=== PATIENT | male | born 1945 | race Caucasian/White ===

== ENCOUNTER 2019-05-01 12:56 | Outpatient (CLI) | payer MEDICARE, SELFPAY ==
--- NOTE | 2019-05-01 13:02 | ECG_ITS ---
Measurements Intervals [place] Rate: 48 P: 48 W[place]: 151 QRS: -2 QRSD: 106 T: 46 QT: 457 QTc: 411 Interpretive Statements SINUS BRADYCARDIA DELAYED PRECORDIAL R/S TRANSITION BORDERLINE T WAVE ABNORMALITY- ANT/INF LEADS BASELINE ARTIFACT- I, II, III, AVR, AVL, AVF ABNORMAL ECG Electronically Signed On 05-01-2019 14:19:33 [employer] by Michael Moore D.O.
[2019-05-01 13:57] LABS: INR 1.9; Potassium 4.1 mmol/L (3.4-5.0); Prothrombin Time 21.1 Seconds (11.1-14.7)
[2019-05-01 13:58] LABS: Partial Thromboplastin Time 38.9 SECONDS (22.3-36.8)
[2019-05-01 14:04] LABS: Blood Urea Nitrogen 25 mg/dL (9-20); Calcium 9.5 mg/dL (8.4-10.2); Carbon Dioxide 30 mmol/L (22-30); Chloride 100 mmol/L (98-107); Estimated Glomerular Filt Rate 54; Glucose 103 mg/dL (75-110); Sodium 141 mmol/L (137-145)
== END 2019-05-01 12:57 | disposition home or self-care (01) ==
LOC: ANHSURGERY 13:02
PROVIDERS: Anesthesiology; PCP Internal Medicine; Visit Provider Urology
DX: Z79.01 Long term (current) use of anticoagulants (principal); Z79.899 Other long term (current) drug therapy; I10 Essential (primary) hypertension
CPT/HCPCS: 36415; 80048; 85610; 85730; 93005

== ENCOUNTER 2019-05-10 00:59 | Day surgery (SDC) | payer MEDICARE, SELFPAY ==
[2019-04-19 12:20] VITALS: BMI 30.4
--- NOTE | 2019-05-07 16:51 | P.HP_ITS ---
History of Present Illness History of Present Illness Consent: Risks, benefits, and alternatives have been discussed and questions answered. Patient agrees to proceed with procedure. Chief complaint: Prostate Cancer Narrative: Robert Daniel is a 73 year old male diagnosed with prostate cancer in 05/2015 when PSA was 6.38. After discussion of treatment options pt. has opted for placement of SpaceOAR to minimize risk of rectal irritation/injury during radiation. Review of Systems Cardiovascular: Cardiovascular: Denies chest pain, Denies lightheadedness, Denies palpitations and Denies dyspnea Respiratory: Respiratory: Denies dyspnea Gastrointestinal: Gastrointestinal: Denies diarrhea, Denies nausea and Denies vomiting Genitourinary: Genitourinary: Denies hematuria and Denies dysuria Endocrine: Endocrine: Denies palpitations PMFSH Social History Social History Gender identity (if verbalized by the patient): Male Meds Home Medications and Allergies Home Medications Medication Instructions Recorded Confirmed Type allopurinol 300 mg PO HS 04/19/19 04/19/19 History amlodipine 10 mg PO DAILY 04/19/19 04/19/19 History atenolol 25 mg PO DAILY 04/19/19 04/19/19 History atorvastatin 20 mg PO HS 04/19/19 04/19/19 History folic acid 1 mg PO DAILY 04/19/19 04/19/19 History hydrochlorothiazide 25 mg PO DAILY 04/19/19 04/19/19 History losartan 100 mg PO DAILY 04/19/19 04/19/19 History omega 3-wiw-vum-fish oil [Fish Oil] 3 cap PO DAILY 04/19/19 04/19/19 History warfarin See Rx Instructions .ROUTE .COMPLEX 04/19/19 04/19/19 History Allergies Allergy/AdvReac Type Severity Reaction Status Date / Time No Known Allergies Allergy Verified 04/19/19 12:20 Exam Const: General: no acute distress Resp: Effort & Inspection: normal respiratory effort GI: Inspection: non-distended GI Palp: No abdominal tenderness and No Guarding due to palpation present (GI) Auscultation: normal bowel sounds Assessment and Plan Assessment and plan (1) Prostate cancer: Code(s): C61 - Malignant neoplasm of prostate Status: Acute Assessment and Plan: * Transrectal ultrasound and placement of SpaceOAR. * Risc of rectal injury discussed with pt.
--- NOTE | 2019-05-10 06:44 | WPDHPUPDATE1 ---
History and Physical Update Update Date/Time: 05/10/19 06:44 History and Physical has been reviewed, including an updated exam of the patient. There are NO changes in the patient's condition. Risks, benefits, and alternatives have been discussed and questions answered. Patient agrees to proceed with procedure.
[2019-05-10 09:00] VITALS: BP 153/63; PULSE 51; RESP 18; TEMP 37.3; O2SAT 99
[2019-05-10] MEDS: LACTATED RINGERS 1,000 ML 30 ML IV CONT (09:00)
--- NOTE | 2019-05-10 09:01 | WPDANESEPPF ---
Anes - Initial Pre Proc Eval Procedure: Operation Date: 05/10/19 10:30 Proposed Procedures p Insertion SpaceOAR Hydrogel System - Man Camacho MD Date/Time: 05/10/19 09:01 Surgeon: Man Camacho MD Pre Op Diagnosis: Prostate Cancer Patient Data Age: 73 Gender: M Height: 6 ft Weight: 101.6 kg Allergies Allergy/AdvReac Type Severity Reaction Status Date / Time No Known Allergies Allergy Verified 04/19/19 12:20 Home Medications Medication Instructions Recorded Confirmed Type allopurinol 300 mg PO HS 04/19/19 04/19/19 History amlodipine 10 mg PO DAILY 04/19/19 04/19/19 History atenolol 25 mg PO DAILY 04/19/19 04/19/19 History atorvastatin 20 mg PO HS 04/19/19 04/19/19 History folic acid 1 mg PO DAILY 04/19/19 04/19/19 History hydrochlorothiazide 25 mg PO DAILY 04/19/19 04/19/19 History losartan 100 mg PO DAILY 04/19/19 04/19/19 History omega 6-viv-mca-fish oil [Fish Oil] 3 cap PO DAILY 04/19/19 04/19/19 History warfarin See Rx Instructions .ROUTE .COMPLEX 04/19/19 04/19/19 History Patient hx anesthesia problems: none Family hx anesthesia problems: none PMFSH Past Medical History Medical History DVT (deep venous thrombosis) Hyperlipidemia Hypertension Pulmonary embolism Social History Social History Gender identity (if verbalized by the patient): Male Anes - Eval Final PreProcedure Day of Procedure 05/10/19 09:01 Patient weight: obese Heart: regular rate and rhythm Lungs: decreased breath sounds Airway: Mallampati scale class II Neurological: alert and oriented Last oral intake: >/= 8 hours ASA classification: IV Emergent: yes Anesthetic plan: proceed Anesthesia type and monitoring: general LMA and standard monitoring Informed Consent: The patient's anesthetic plan and its attendant risks and benefits were discussed with the patient/family/POA. Questions were solicited and answers provided to the satisfaction of the patient/family/POA.
[2019-05-10 09:20] LABS: INR 0.9; Partial Thromboplastin Time 26.2 SECONDS (22.3-36.8); Prothrombin Time 12.3 Seconds (11.1-14.7)
[2019-05-10] MEDS: ceFAZolin 2 GM/D5W 50 ML 2 GM/50 ML BAG IVPB (10:47)
[2019-05-10 11:22] VITALS: BP 100/54; PULSE 57; RESP 16; TEMP 36.8; O2SAT 100
--- NOTE | 2019-05-10 11:26 | P.OP_ITS ---
Procedure Note - Detailed Date of procedure: 05/10/19 Pre-op diagnosis: Prostate Cancer Prostate cancer Post-op diagnosis: same Procedure performed: Transrectal ultrasound guidance of insertion SpaceOAR Description of procedure: This patient has been diagnosed with prostate cancer. Patient has met with a radiation oncologist who has prescribed a course of radiation for treatment of the malignancy. Please refer to the Radiation Oncologist's note for radiation method, dose, number of fractions. After discussing with the radiation oncologist and the patient, it has been agreed upon to proceed with SpaceOAR placement. The purpose of SpaceOAR is to reduce rectal irradiation during radiation therapy by placing an absorbable polyethylene glycol (PEG) hydrogel (SpaceOAR) into perirectal fat space, thereby pushing the rectum away from the prostate. Prior to the procedure, a timeout was performed confirming the patient's identity and planned the procedure. Anesthesia was induced without complication. Antibiotics were administered prophylactically, and the patient completed an enema at home prior to the procedure. The patient was positioned in the dorsal lithotomy position. A transrectal ultrasound probe was inserted per rectum with clear visualization of the prostatic base and apex. A bilateral pudendal nerve block was performed using a standard technique (1% lidocaine solution). The needle was advanced to the mid-perineum region and an adequate dose of Lidocaine was injected. Once this area became anesthetized, the needle was advanced until it was proximal to the pudendal nerve, and an additional dose of Lidocaine was injected. Once the area was adequately anesthetized placement of Fiducials/SpaceOAR commenced. Using transperineal ultrasound needle guidance, 3 gold fiducial markers were placed within the prostatic parenchyma. The target locations were Right Base, Left Mid, and Right Grace. Ultrasound confirmed their proper location at the conclusion of placement. With these markers in place, we proceeded on to the SpaceOAR portion of the procedure. Using ultrasound guidance, an axial measurement of the space between the prostate (mid gland) and rectum was noted and measured 2mm. SpaceOAR hydrogel was prepared as described in the entry manager?s 'Instructions For Use'. Under transrectal ultrasound guidance, a 15 cm 18G needle was inserted, transperineal, through the rectourethralis muscle and the needle tip advanced into the perirectal fat posterior to the prostate. The needle position, and downward bevel, were confirmed in both sagittal and axial mcgowan. 3-5cc of Sterile Saline was used to hydro-dissect the space between the Denonvilliers? fascia and anterior rectal wall. Aspiration did not yield any bleeding. With the needle tip at mid gland, the axial field was viewed to confirm the needle was not in the rectal wall -- movement of the needle tip without corresponding movement of the rectal wall confirmed perirectal placement. The assembled SpaceOAR [employer] very system was then attached to the 18G needle. Under ultrasound guidance in the sagittal plane, a smooth, continuous injection technique was used to dispense all 10cc of the SpaceOAR hydrogel into the space between the prostate and rectum. Optimal visualization of the needle during hydrogel administration was maintained at all times. An axial measurement of the space between the prostate (mid gland) and rectum immediately post-SpaceOAR injection was noted and measured 10mm. No suspected penetration or compromise of the rectal wall occurred. Surgeon: Man Camacho MD Estimated blood loss (mL): 0 Drains: No Packing: No Pathology: none sent Complications: No immediate complications Condition: stable D
[2019-05-10 11:35] VITALS: BP 107/55; PULSE 53; RESP 13; O2SAT 96
[2019-05-10 11:50] VITALS: BP 115/54; PULSE 47; RESP 17; O2SAT 99
[2019-05-10 12:05] VITALS: BP 141/66; PULSE 43; RESP 20
[2019-05-10 12:39] VITALS: BP 126/61; PULSE 41; RESP 16
== END 2019-05-10 13:15 | disposition home or self-care (01) ==
PROVIDERS: Anesthesiology; PCP Internal Medicine; Visit Provider Urology
PROC: (CPT 55874; principal; 2019-05-10 10:30)
DX: C61 Malignant neoplasm of prostate (principal); I10 Essential (primary) hypertension; E78.5 Hyperlipidemia, unspecified; Z86.718 Personal history of other venous thrombosis and embolism; Z86.711 Personal history of pulmonary embolism; Z79.01 Long term (current) use of anticoagulants; E66.9 Obesity, unspecified; Z68.30 Body mass index [BMI] 30.0-30.9, adult
CPT/HCPCS: 55874; 36415; 85610; 85730; A9270; J0690; J2405; J2704; J7120